=== PATIENT | male | born 1960 | race Two or more races ===

== ENCOUNTER 2018-09-05 03:11 | Emergency (ER) | payer MEDICAID ==
[~2018-09-05] VITALS: Ht 180.3 cm; Wt 86.2 kg
[2018-09-05 05:26] VITALS: BP 140/82
== END 2018-09-05 05:44 | disposition home or self-care (01) ==
LOC: EDBD 03:11 → ER 03:17
DX: M17.11 Unilateral primary osteoarthritis, right knee (principal); M25.461 Effusion, right knee; Z88.1 Allergy status to other antibiotic agents
CPT/HCPCS: 29505; 73562

== ENCOUNTER 2023-01-03 11:12 | Inpatient (IN) | payer MEDICAID ==
[~2023-01-03] VITALS: Ht 182.9 cm; Wt 114.7 kg
[2023-01-03] MEDS ORDERED: FUROSEMIDE 40 MG/4 ML VIAL IV ONE (11:30)
[2023-01-03 12:04] LABS: Basophils # (auto) 0 10 ^3/uL (0-0.2); Basophils % (auto) 0.3 % (0.0-2.0); Eosinophils # (auto) 0.1 10 ^3/uL (0-0.8); Eosinophils % (auto) 0.6 % (0.0-7.0); Hematocrit 31.8 % (41.0-53.0); Hemoglobin 10.8 g/dL (13.5-17.5); Lymphocytes # (auto) 1.1 10 ^3/uL (0.4-5.4); Lymphocytes % (auto) 10.1 % (10.0-50.0); Mean Corpuscular Hemoglobin 29.5 pg (28.0-32.0); Mean Corpuscular Hgb Conc. 34.1 g/dL (32.0-36.0); Mean Corpuscular Volume 86.4 fL (80.0-100.0); Monocytes # (auto) 0.8 10 ^3/uL (0-1.3); Monocytes % (auto) 7.5 % (0.0-12.0); Neutrophils % (auto) 81.5 % (37.0-80.0); Red Blood Cells 3.68 10^6/uL (4.5-5.90); Red Cell Distribution Width 19.8 % (11.8-14.3); White Blood Cell 11.1 10^3/uL (4.4-10.8)
[2023-01-03 12:22] LABS: Albumin 2.7 g/dL (3.4-5.0); Calcium 7.7 mg/dL (8.5-10.1); Magnesium 2.2 mg/dL (1.6-2.6)
[2023-01-03 12:25] LABS: Lactic Acid w/Reflex 2.5 mmol/L (0.4-2.0)
[2023-01-03 12:45] LABS: BUN/Creatinine Ratio 19.5 (10.0-20.0); Bilirubin, Total 0.7 mg/dL (0.2-1.0); CRP High Sensitivity 10.5 mg/dL (< 0.3); Potassium 3.2 mmol/L (3.5-5.1); Total Protein 5.6 g/dL (6.4-8.2)
[2023-01-03 14:15] LABS: Urine Bacteria NONE SEEN /hpf (None Seen); Urine Blood Negative /uL (Negative); Urine Mucus FEW (None Seen); Urine WBC 1 /hpf (0 - 3)
[2023-01-03] MEDS ORDERED: GOLYTELY 4L KIT PO ONE (14:30)
[2023-01-03] MEDS ORDERED: ACETAMINOPHEN 325 MG TAB PO ONE (18:00)
[2023-01-03] MEDS ORDERED: cefTRIAXone 1GM/50ML D5W 50 ML IV ONE (21:00)
[2023-01-03] MEDS ORDERED: HYDROcodone-ACET 5/325MG TAB PO PRN (21:00)
[2023-01-03] MEDS ORDERED: ONDANSETRON HCL 4 MG/2 ML VIAL IV PRN (21:00)
[2023-01-03] MEDS: ATORVASTATIN 20 MG TAB PO SCH (21:37)
[2023-01-03] MEDS: DOCUSATE SOD 100 MG CAP PO SCH (21:37)
[2023-01-03] MEDS: METOPROLOL TARTRATE 25 MG TAB PO SCH (21:47)
[2023-01-03] MEDS: ACETAMINOPHEN 325 MG TAB PO PRN (22:09)
[2023-01-04] MEDS ORDERED: GABAPENTIN 300 MG CAP PO ONE (03:30)
[2023-01-04 05:59] LABS: Basophils # (auto) 0 10 ^3/uL (0-0.2); Basophils % (auto) 0.4 % (0.0-2.0); Eosinophils # (auto) 0 10 ^3/uL (0-0.8); Eosinophils % (auto) 0.7 % (0.0-7.0); Hematocrit 25.8 % (41.0-53.0); Hemoglobin 9.1 g/dL (13.5-17.5); Lymphocytes # (auto) 0.9 10 ^3/uL (0.4-5.4); Lymphocytes % (auto) 14.4 % (10.0-50.0); Mean Corpuscular Hemoglobin 30.5 pg (28.0-32.0); Mean Corpuscular Hgb Conc. 35.2 g/dL (32.0-36.0); Mean Corpuscular Volume 86.7 fL (80.0-100.0); Monocytes # (auto) 0.4 10 ^3/uL (0-1.3); Monocytes % (auto) 6.1 % (0.0-12.0); Neutrophils # (auto) 4.6 10 ^3/uL (1.6-8.6); Neutrophils % (auto) 78.4 % (37.0-80.0); Nucleated Red Blood Cells % 0.1 %; Red Blood Cells 2.98 10^6/uL (4.5-5.90); Red Cell Distribution Width 18.7 % (11.8-14.3); White Blood Cell 5.9 10^3/uL (4.4-10.8)
[2023-01-04 06:34] LABS: BUN/Creatinine Ratio 17.5 (10.0-20.0)
[2023-01-04 06:54] LABS: Potassium 2.9 mmol/L (3.5-5.1)
[2023-01-04] MEDS ORDERED: POTASSIUM CHL 20 Meq TABLET PO ONE (07:00)
[2023-01-04] MEDS: LEVOTHYROXINE SODIUM 50 MCG TAB PO SCH (07:05)
[2023-01-04 09:00] VITALS: BP 121/77
[2023-01-04] MEDS ORDERED: BACL10TA PO (09:47)
[2023-01-04] MEDS ORDERED: MAGN500T17 PO (09:47)
[2023-01-04] MEDS ORDERED: BUSP7.5T8 PO (09:47)
[2023-01-04] MEDS ORDERED: HYDRX10T PO (09:47)
[2023-01-04] MEDS ORDERED: LEV150T PO (09:47)
[2023-01-04] MEDS ORDERED: MELO7.5T7 PO (09:47)
[2023-01-04] MEDS ORDERED: FURO40TA4 PO (09:48)
[2023-01-04] MEDS ORDERED: ATOR20TA50 PO (09:48)
[2023-01-04] MEDS ORDERED: MESA1.2T2 PO (09:49)
[2023-01-04] MEDS ORDERED: CYCL-611 PO (09:49)
[2023-01-04] MEDS ORDERED: LAMO150T26 PO (09:49)
[2023-01-04] MEDS ORDERED: PRED20TA2 PO (09:49)
[2023-01-04] MEDS ORDERED: POTA-228 PO (09:51)
[2023-01-04] MEDS ORDERED: NABU-72 PO (09:51)
[2023-01-04] MEDS ORDERED: GABA-1250 PO (09:51)
[2023-01-04] MEDS: cefTRIAXone 1GM/50ML D5W 50 ML IV SCH (10:22)
[2023-01-04] MEDS: lamoTRIgine 100 MG TAB PO SCH (10:23)
[2023-01-04] MEDS: DOCUSATE SOD 100 MG CAP PO SCH ×2 (10:23→21:44)
[2023-01-04] MEDS: METOPROLOL TARTRATE 25 MG TAB PO SCH ×2 (10:25→21:44)
[2023-01-04] MEDS: LOSARTAN POTASSIUM 50 MG TAB PO SCH (10:26)
[2023-01-04] MEDS: FUROSEMIDE 40 MG TAB PO SCH (10:48)
[2023-01-04 13:00] VITALS: BP 86/51
[2023-01-04 16:43] VITALS: BP 92/52
[2023-01-04] MEDS: MESALAMINE 400mg Delayed Release Cap PO SCH ×2 (18:36→21:42)
[2023-01-04 20:10] VITALS: BP 94/40
[2023-01-04] MEDS: ACETAMINOPHEN 325 MG TAB PO PRN (20:15)
[2023-01-04] MEDS: ATORVASTATIN 20 MG TAB PO SCH (21:42)
[2023-01-04 22:00] VITALS: BP 94/40
[2023-01-05] MEDS: ACETAMINOPHEN 325 MG TAB PO PRN (02:43)
[2023-01-05 05:00] VITALS: BP 98/52
[2023-01-05] MEDS: MESALAMINE 400mg Delayed Release Cap PO SCH (05:55)
[2023-01-05] MEDS: LEVOTHYROXINE SODIUM 50 MCG TAB PO SCH (05:55)
[2023-01-05 06:04] LABS: Basophils # (auto) 0 10 ^3/uL (0-0.2); Basophils % (auto) 0.4 % (0.0-2.0); Eosinophils # (auto) 0.1 10 ^3/uL (0-0.8); Hematocrit 25.7 % (41.0-53.0); Hemoglobin 9.2 g/dL (13.5-17.5); Lymphocytes # (auto) 1.1 10 ^3/uL (0.4-5.4); Lymphocytes % (auto) 21.6 % (10.0-50.0); Mean Corpuscular Hemoglobin 30.5 pg (28.0-32.0); Mean Corpuscular Hgb Conc. 35.7 g/dL (32.0-36.0); Mean Corpuscular Volume 85.4 fL (80.0-100.0); Monocytes # (auto) 0.5 10 ^3/uL (0-1.3); Monocytes % (auto) 9.6 % (0.0-12.0); Neutrophils # (auto) 3.6 10 ^3/uL (1.6-8.6); Neutrophils % (auto) 67.4 % (37.0-80.0); Nucleated Red Blood Cells % 0.1 %; Red Blood Cells 3.01 10^6/uL (4.5-5.90); Red Cell Distribution Width 18.8 % (11.8-14.3); White Blood Cell 5.3 10^3/uL (4.4-10.8)
[2023-01-05 06:21] LABS: BUN/Creatinine Ratio 16.5 (10.0-20.0); Calcium 8.1 mg/dL (8.5-10.1)
[2023-01-05 06:29] LABS: Potassium 2.8 mmol/L (3.5-5.1)
[2023-01-05] MEDS ORDERED: POTASSIUM CHL 20MEQ/100ML 100 ML IV SCH (08:45)
[2023-01-05] MEDS ORDERED: POTASSIUM EFFERVESENT TAB 25 MEQ PO ONE (08:45)
[2023-01-05 09:00] VITALS: BP 121/62
[2023-01-05] MEDS: cefTRIAXone 1GM/50ML D5W 50 ML IV SCH (09:14)
[2023-01-05] MEDS: lamoTRIgine 100 MG TAB PO SCH (09:20)
[2023-01-05] MEDS: LOSARTAN POTASSIUM 50 MG TAB PO SCH (09:22)
[2023-01-05] MEDS: METOPROLOL TARTRATE 25 MG TAB PO SCH (09:22)
[2023-01-05] MEDS: DOCUSATE SOD 100 MG CAP PO SCH (09:23)
[2023-01-05] MEDS: FUROSEMIDE 40 MG TAB PO SCH (09:30)
== END 2023-01-05 11:57 | disposition left against medical advice (07) | DRG 245 ==
LOC: EDBD 11:12 → ER 11:12 → OVERFLOW 21:10 → WEST WING 01-04 09:14
PROVIDERS: ADMIT Nurse Practitioner; ATTEND Internal Medicine Pulmonary Disease
DX: K51.30 Ulcerative (chronic) rectosigmoiditis without complications (principal); E44.0 Moderate protein-calorie malnutrition; I50.9 Heart failure, unspecified; M32.9 Systemic lupus erythematosus, unspecified; I11.0 Hypertensive heart disease with heart failure; E66.01 Morbid (severe) obesity due to excess calories; K59.00 Constipation, unspecified; R33.9 Retention of urine, unspecified; M06.9 Rheumatoid arthritis, unspecified; Z53.29 Procedure and treatment not carried out because of patient's decision for other reasons; Z68.34 Body mass index [BMI] 34.0-34.9, adult
CPT/HCPCS: 36415; 74176; 80048; 80053; 81001; 83605; 83735; 83880; 84443; 84484; 85025; 86141; 87086; 93005; 93971; 96365; 96375; G0378; J0696; J3480

== ENCOUNTER 2025-02-16 11:10 | Emergency (ER) | payer MEDICAID ==
[~2025-02-16] VITALS: Ht 182.9 cm; Wt 100.2 kg
[~2025-02-16 11:10] MED LIST: ATOR20TA50 PO; BACL10TA PO; BUSP7.5T8 PO; CYCL-611 PO; FURO40TA4 PO; GABA-1250 PO; HYDRX10T PO; LAMO150T26 PO; LEV150T PO; MAGN500T17 PO; MELO7.5T7 PO; MESA1.2T12 PO; NABU-72 PO; POTA-228 PO; PRED20TA2 PO
[2025-02-16] MEDS ORDERED: SODIUM CHLORIDE 0.9% 500 ML IV ONE (12:00)
--- NOTE | 2025-02-16 12:06 | ED.PDOC ---
History of Present Illness HPI Comments 64 y.o male with PMHx of Crohn's, colitis, RA, CHF, kidney cysts, breast cancer, multiple hernias, lupus and thyroid, presents to the ED for a chief complaint of generalized weakness associated with nausea that started on January 16, 2025 s/p dental surgery. Patient reports having extensive oral surgery, since has not been able to intake much fluid or food creating a progressively worsening weakness. Patient denies any difficulty swallowing and is not on any antibiotics at this time. Patient also denies any abdominal pain, fever, chills, chest pain or SOB. He does not use tobacco, alcohol or substances. Chief Complaint: Nausea/Vomiting Time Seen by MD: 11:50 Primary Care Provider: JOSE[facility] Reviewed Notes: Nurses Notes, Medications, Allergies Allergies: Coded Allergies: Clindamycin (Verified Allergy, Severe, 01/03/23) Iodine (Verified Allergy, Severe, 02/16/25) Erythromycin (Verified Allergy, Unknown, 09/05/18) Home Meds Reported Medications Nabumetone (Nabumetone) 500 Mg Tab, 1 TAB PO BID 01/04/23 Gabapentin (Gabapentin) 300 Mg Cap, 1 CAP PO BID 01/04/23 Potassium Chloride (Potassium Chloride ER) 10 Meq Tab, 1 TAB PO DAILY 01/04/23 Mesalamine (Mesalamine Dr) 1.2 Gm Tab, 4 TAB PO DAILY 01/04/23 Cyclobenzaprine HCl (Cyclobenzaprine Hydrochlo) 10 Mg Tab, 1 TAB PO TID 01/04/23 Prednisone (Prednisone) 20 Mg Tab, 1 TAB PO BID 01/04/23 Lamotrigine (Lamotrigine) 150 Mg Tab, 1 TAB PO DAILY 01/04/23 Atorvastatin Calcium (ATORVASTATIN CALCIUM) 20 Mg Tab, 1 TAB PO DAILY 01/04/23 Furosemide (Furosemide) 40 Mg Tab, 1 TAB PO DAILY 01/04/23 Hydroxyzine Hcl (Hydroxyzine Hcl) 10 Mg Tab, 1 TAB PO BID 01/04/23 Buspirone Hcl (Buspirone Hcl) 7.5 Mg Tab, 1 TAB PO BID 01/04/23 Levothyroxine Sodium (Synthroid) 150 Mcg Tab, 1 TAB PO DAILY 01/04/23 Magnesium Oxide (Magnesium) 500 Mg Tab, 1 TAB PO DAILY 01/04/23 Baclofen (Baclofen) 10 Mg Tab, 1 TAB PO TID 01/04/23 Meloxicam (Meloxicam) 7.5 Mg Tab, PO 01/04/23 Information Source: Patient Mode of Arrival: Wheelchair Severity: Moderate Timing: Months Past Medical History PAST MEDICAL HISTORY: Arthritis, Cancer, CHF, HTN, Thyroid Past Medical History (Other): Lupus, colitis, crohn's Surgical History: Appendectomy, Hernia Repair (multiple ), Thyroidectomy Surgical History (Other): left mastectomy Family History Family History: Reviewed,noncontributory to illness Social History Smoker: Non-Smoker Alcohol: Denies ETOH Use Drugs: Denies Drug Use Lives In: Home Constitutional: reports: weakness; denies: chills, diaphoresis, fatigue, fever, malaise, sweats, others EENTM: denies: blurred vision, double vision, ear bleeding, ear discharge, ear drainage, ear pain, ear ringing, eye pain, eye redness, hearing loss, mouth pain, mouth swelling, nasal discharge, nose bleeding, nose congestion, nose pain, photophobia, tearing, throat pain, throat swelling, voice changes, others Respiratory: denies: cough, hemoptysis, orthopnea, SOB at rest, shortness of breath, SOB with excertion, stridor, wheezing, others Cardiovascular: denies: chest pain, dizzy spells, diaphoresis, Dyspnea on exertion, edema, irregular heart beat, left arm pain, lightheadedness, palpitations, PND, syncope, others Gastrointestinal: reports: nausea; denies: abdomen distended, abdominal pain, b lood streaked bowels, constipated, diarrhea, dysphagia, difficulty swallowing, hematemesis, melena, poor appetite, poor fluid intake, rectal bleeding, rectal pain, vomiting, others Genitourinary: denies: burning, dysuria, flank pain, frequency, hematuria, incontinence, penile discharge, penile sore, pain, testicle pain, testicle swelling, urgency, others Neurological: denies: dizziness, fainting, headache, left sided numbness, left sided weakness, numbness, paresthesia, pre-existing deficit, right sided numbness, right sided weakness, seizure, speech problems, tingling, tremors, weakness, others Musculoskeletal: denies: back pain, gout, joint pain, joint swelling, muscle pain, muscle stiffness, neck pain, others Integumetry: denies: bruises, change in color, change in hair/nails, dryness, laceration, lesions, lumps, rash, wounds, others Allergic/Immunocompromised: denies: Difficulty Healing, Frequent Infections, Hives, Itching, others Hematologic/Lymphatic: denies: anemia, blood clots, easy bleeding, easy bruising, swollen glands, others Endocrine: denies: excessive hunger, excessive sweating, excessive thirst, excessive urination, flushing, intolerance to cold, intolerance to heat, unexplained weight gain, unexplained weight loss, others Psychiatric: denies: anxiety, bipolar disorder, depression, hopeless, panic disorder, schizophrenia, sleepless, suicidal, others All Other Systems: Reviewed and Negative Physical Exam General Appearance: No Apparent Distress HEENT: Normal ENT Inspection, Pharynx Normal, TMs Normal Neck: Full Range of Motion, Non-Tender, Normal, Normal Inspection Respiratory: Chest Non-Tender, Lungs Clear, No Accessory Muscle Use, No Respiratory Distress, Normal Breath Sounds Cardiovascular: No Edema, No JVD, No Murmur, No Gallop, Normal Peripheral Pulses, Regular Rate/Rhythm Breast Exam: Deferred Gastrointestinal: No Organomegaly, Non Tender, No Pulsatile Mass, Normal Bowel Sounds, Soft Genitalia: Deferred Pelvic: Deferred Rectal: Deferred Extremities: No calf tenderness, Normal capillary refill, No pedal edema Musculoskeletal : Apperance: Normal Neurologic: gleason gear generator II-XII nml as Tested, Motor Weakness, Normal Affect, Normal Mood, No Sensory Deficits Cerebellar Function: Unable to Test Reflexes: Normal Skin: Dry, Normal Color, Warm Lymphatic: No Adenopathy Was a procedure done? Was a procedure done?: No EKG EKG : Pulse Rate (adult): 115 [place]: LAD Cardiac Rhythm: ST Hypertrophy: LVH Differential Dx Considerations may include: Electrolyte imbalance, dehydration, viral syndrome, post operative complications X-Ray, Labs, Meds, VS Vital Signs Date Time Temp Pulse Resp B/P (MAP) Pulse Ox O2 Delivery O2 Flow Rate FiO2 02/16/25 13:17 98.7 111 16 93/72 (79) 99 98.7 02/16/25 13:17 111 16 97 Room Air 02/16/25 12:06 115 02/16/25 11:52 98.4 120 16 108/82 (91) 97 98.4 02/16/25 11:47 115 Lab Test 02/16/25 12:52 02/16/25 11:40 Range/Units White Blood Count 10.9 H 4.4-10.8 10^3/uL Red Blood Count 5.38 4.5-5.90 10^6/uL Hemoglobin 16.1 13.5-17.5 g/dL Hematocrit 45.9 41.0-53.0 % Mean Corpuscular Volume 85.3 80.0-100.0 fL Mean Corpuscular Hemoglobin 29.8 28.0-32.0 pg Mean Corpuscular Hemoglobin Concent 35.0 32.0-36.0 g/dL Red Cell Distribution Width 14.3 11.8-14.3 % Platelet Count 240 140-450 10^3/uL Mean Platelet Volume 8.3 6.9-10.8 fL Neutrophils (%) (Auto) 77.6 37.0-80.0 % Lymphocytes (%) (Auto) 13.2 10.0-50.0 % Monocytes (%) (Auto) 7.8 0.0-12.0 % Eosinophils (%) (Auto) 1.0 0.0-7.0 % Basophils (%) (Auto) 0.4 0.0-2.0 % Neutrophils # (Auto) 8.5 1.6-8.6 10 ^3/uL Lymphocytes # (Auto) 1.4 0.4-5.4 10 ^3/uL Monocytes # (Auto) 0.9 0-1.3 10 ^3/uL Eosinophils # (Auto) 0.1 0-0.8 10 ^3/uL Basophils # (Auto) 0 0-0.2 10 ^3/uL Nucleated Red Blood Cells 0.1 % Sodium Level 135 L 136-145 mmol/L Potassium Level 4.4 3.5-5.1 mmol/L Chloride Level 95 L 98-107 mmol/L Carbon Dioxide Level 25 20-31 mmol/L Anion Gap 15 5-15 Blood Urea Nitrogen 7 L 9-23 mg/dL Creatinine 1.41 H 0.700-1.30 mg/dL Glomerular Filtration Rate Calc 56 >90 mL/min BUN/Creatinine Ratio 5.0 L 10.0-20.0 Serum Glucose 93 74-106 mg/dL Calcium Level 10.2 8.7-10.4 mg/dL POC Glucose 114 H 70-106 mg/dl The patient's CBC shows an elevated white blood cell count of 10.9 The rest of the CBC and chemistry panel are within normal limits We attempted to further evaluate the patient with the patient has eloped from the department's Time of 1ST Reevaluation: 12:06 Reevaluation 1ST: Unchanged Patient Education/Counseling: Diagnosis, Treatment, Prognosis Family Education/Counseling: No Family Present SEPSIS Sepsis Screen Date sepsis recognized/suspect: Feb 16, 2025 Time Sepsis recognized/suspect: 1108 Recent Procedure: No On Antibiotic Therapy: No Respiratory Rate >20: No Heart Rate >90: Yes Temp<36 C (96.8 F) or >38.3 C: No SBP <90 or MAP <65 mmHG: No New Acute Mental Status Change: No Is the patient on CPAP, BIPAP,: No Physician Orders Electrocardigram (02/16/25 11:50) Electrocardigram (02/16/25 12:50) Urinalysis (02/16/25 11:57) Heplock Iv (02/16/25 11:57) Freight Agent (02/16/25 11:57) Blood Pressure (02/16/25 11:57) Pulse Oximetry (02/16/25 11:57) Vital Signs Date Time Temp Pulse Resp B/P (MAP) Pulse Ox O2 Delivery O2 Flow Rate FiO2 02/16/25 13:17 98.7 111 16 93/72 (79) 99 98.7 02/16/25 13:17 111 16 97 Room Air 02/16/25 12:06 115 02/16/25 11:52 98.4 120 16 108/82 (91) 97 98.4 02/16/25 11:47 115 Laboratory Tests Test 02/16/25 12:52 White Blood Count 10.9 10^3/uL (4.4-10.8) H Departure 1 Departure Time of Disposition: 15:53 Impression: Primary Impression: Generalized weakness Disposition: 07 LEFT AWOL/ELOPED Condition: Fair Discharged With: Self Critical Care Note Critical Care Time?: No Stability Stability form required: No Heart Score Heart Score: Heart Score Response (Comments) Value History N/A 0 EKG N/A 0 Age N/A 0 Risk Factors N/A 0 Troponin N/A 0 Total 0 I personally scribed for RIGO,DANNIE B MD ([email or web address]) on 02/16/25 at 12:06. Electronically submitted by Ana Melgar ([facility]). DANNIE SIERRA MD Feb 16, 2025 12:06
[2025-02-16 13:17] VITALS: BP 93/72; PULSE 111; RESP 16; TEMP 98.7; O2SAT 97
[2025-02-16 13:37] LABS: Hematocrit 45.9 % (41.0-53.0); Hemoglobin 16.1 g/dL (13.5-17.5); Mean Corpuscular Hemoglobin 29.8 pg (28.0-32.0); Mean Corpuscular Volume 85.3 fL (80.0-100.0); Nucleated Red Blood Cells % 0.1 %
[2025-02-16 13:41] LABS: Anion Gap 15 (5-15); Calcium 10.2 mg/dL (8.7-10.4); Carbon Dioxide 25 mmol/L (20-31)
[2025-02-16 13:45] LABS: Chloride 95 mmol/L (98-107); Potassium 4.4 mmol/L (3.5-5.1); Sodium 135 mmol/L (136-145)
[2025-02-16 13:46] LABS: Glucose 93 mg/dL (74-106)
[2025-02-16 14:22] LABS: BUN/Creatinine Ratio 5.0 (10.0-20.0)
[2025-02-16 14:23] LABS: Blood Urea Nitrogen 7 mg/dL (9-23)
--- NOTE | 2025-02-17 04:33 | ECG ---
[facility] Test Date: 2025-02-16 Test Time: 11:47:10 Pat Name: MARY CARMEN GRECO Department: ER Room: Gender: M Iron Handler: : 1960 Requested By: DANNIE SIERRA Order Number: [id number] Reading MD: Randall Galeana Measurements Intervals [place] Rate: 115 P: 10 CT: 142 QRS: -23 QRSD: 84 T: -58 QT: 362 QTc: 501 Interpretive Statements Sinus tachycardia Ventricular premature complex Borderline left axis deviation Low voltage, precordial leads Consider anterior infarct Prolonged QT interval Electronically Signed On 02-17-2025 19:31:39 PDT by Randall Galeana Please click the below link to view image of tracing.
== END 2025-02-16 16:14 | disposition left against medical advice (07) ==
LOC: ER 11:10
DX: R53.1 Weakness (principal); M19.90 Unspecified osteoarthritis, unspecified site; I11.0 Hypertensive heart disease with heart failure; I50.9 Heart failure, unspecified; K50.90 Crohn's disease, unspecified, without complications; Z98.890 Other specified postprocedural states; Z88.8 Allergy status to other drugs, medicaments and biological substances; Z90.12 Acquired absence of left breast and nipple; Z90.49 Acquired absence of other specified parts of digestive tract; Z88.1 Allergy status to other antibiotic agents; Z85.3 Personal history of malignant neoplasm of breast; Z79.899 Other long term (current) drug therapy; Z79.890 Hormone replacement therapy; Z79.52 Long term (current) use of systemic steroids
CPT/HCPCS: 36415; 80048; 82947; 82962; 85025; 93005